=== PATIENT | female | born 1950 | race Caucasian/White ===

== ENCOUNTER 2018-08-29 11:29 | Outpatient (CLI) | payer MEDICARE ==
--- NOTE | 2018-08-29 12:44 | RAD ---
RIGHT FOOT FOUR VIEWS: History: Chronic pain. No reported trauma. Comparison: None. FINDINGS: Lisfranc alignment is maintained. Joint spaces are preserved. No fracture. No irregularity of periost eal reaction. IMPRESSION: Unremarkable right foot three views. POS: [facility]
--- NOTE | 2018-08-29 12:46 | RAD ---
THREE VIEW LEFT FOOT: Indication: Chronic pain of left foot without reported injury. 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 There is no fracture or dislocation. Lisfranc joint is mainta ined. Calcaneal enthesophyte formation is present, more notable at the dorsal aspect. IMPRESSION: Mild degenerative change of the left foot without acute osseous abnormality. POS: [facility]
== END 2018-08-29 11:30 | disposition home or self-care (01) ==
LOC: MADRAD 11:29
PROVIDERS: ATTEND Obstetrics & Gynecology
DX: M79.671 Pain in right foot (principal); M79.672 Pain in left foot; M19.072 Primary osteoarthritis, left ankle and foot